=== PATIENT | male | born 1970 | race Caucasian/White ===

== ENCOUNTER 2018-03-07 09:14 | Emergency (ER) | payer OTHER ==
[2018-03-07 09:29] VITALS: BP 160/93; PULSE 94; TEMP 98.3; BMI 26.4
[2018-03-07] MEDS ORDERED: DEXAMETHASONE SOD PHOSPHATE 10 MG/1 ML VIAL IM ONE (11:08)
--- NOTE | 2018-03-07 11:14 | PDOC ---
History of Present Illness - General Chief Complaint: Rash Stated Complaint: POSSIBLE POISON ADRIANA Time Seen by Provider: 03/07/18 09:25 History Source: Patient - History of Present Illness Timing/Duration: reports: week Location: reports: extremities, torso Respiratory Risk Factors: reports: other (poison lisa) Past History - Past Medical History Allergies/Adverse Reactions: Allergies Allergy/AdvReac Type Severity Reaction Status Date / Time No Known Allergies Allergy Verified 03/07/18 09:17 Home Medications: Ambulatory Orders Clobetasol Prop 0.05% Tp Oint [Temovate (Nf)] 60 gm NR BID #1 tube 03/07/18 COPD: No - Suicide/Smoking/Psychosocial Hx Smoking History: Current every day smoker Have you smoked in the past 12 months: Yes Number of Cigarettes Smoked Daily: 20 Information on smoking cessation initiated: Yes 'Breaking Loose' booklet given: 03/07/18 Hx Alcohol Use: No Drug/Substance Use Hx: No Substance Use Type: None Review of Systems - Review of Systems Constitutional: No: Fever Respiratory: No: Shortness of Breath, Stridor, Wheezing Integumentary: Yes: Pruritus, Rash *Physical Exam - Vital Signs Last Vital Signs Temp Pulse Resp BP Pulse Ox 98.3 F 94 H 18 160/93 100 03/07/18 09:18 03/07/18 09:18 03/07/18 09:18 03/07/18 09:18 03/07/18 09:18 - Physical Exam General Appearance: Yes: Appropriately Dressed, Mild Distress HEENT: positive: Normal Voice Neck: positive: Supple. negative: Stridor Respiratory/Chest: positive: Lungs Clear, Normal Breath Sounds. negative: Respiratory Distress Cardiovascular: positive: Regular Rate, S1, S2 Integumentary: positive: Dry, Warm, Rash (extensive erythematous plaques and papules, some in streak like pattern to upper extremities bilaterally including axilla areas, right greater than left, small scattered erythematous papules to torso and LE b/l, no facial/ genital involvement, no vesicles/bullae seen) Neurologic: positive: Fully Oriented, Alert, Normal Mood/Affect Medical Decision Making - Medical Decision Making 03/07/18 11:11 47-year-old male, no significant history here with pruritic rash secondary to suspected poison lisa as per patient. States rash started almost a week ago after trimming edges in his yard. WQas wearing tank top and shorts at the time. Rash has gradually worsened, located to upper extremities mostly and notice dRLE rash and itchign this am. No tongue swelling or SOB. Usint toipal cream w/ no relief See exam Poison Lisa dermatitis No genital/face involvement No resp complaints/angioedema Stable in ED -dose of decadron for itching -dc w/ high potency steroid -return precautions given *DC/Admit/Observation/Transfer Diagnosis at time of Disposition: Poison lisa dermatitis - Discharge Dispostion Disposition: HOME Condition at time of disposition: Good - Prescriptions Prescriptions: Clobetasol Prop 0.05% Tp Oint [Temovate (Nf)] 60 gm NR BID #1 tube - Referrals - Patient Instructions Printed Discharge Instructions: DI for Poison Lisa Allergy Additional Instructions: You have a poison lisa dermatitis. First-line treatment is with high potency topical steroids which she were given. Please apply to affected areas twice a day 2 weeks. You were also given an IM dose of steroids here to further assist with itching. Please return to ER for persistent or worsening of symptoms - Post Discharge Activity Forms/Work/School Notes: Back to Work
[2018-03-07] MEDS ORDERED: DEXAMETHASONE SOD PHOSPHATE 10 MG/1 ML VIAL ONE (11:15)
== END 2018-03-07 11:47 | disposition home or self-care (01) ==
LOC: JER 09:14 → JERFT 09:14
PROC: 3E0233Z Introduction of Anti-inflammatory into Muscle, Percutaneous Approach (ICD-10-PCS; principal; 2018-03-07)
DX: L23.7 Allergic contact dermatitis due to plants, except food (principal)
CPT/HCPCS: 96372; 99281-25; J1100